=== PATIENT | male | born 1990 | race Caucasian/White ===

== ENCOUNTER 2021-05-19 08:24 | Emergency (ER) | payer OTHER, SELFPAY ==
--- NOTE | ~2021-05-19 | XR_ITS ---
XR ankle RT min 3V DATE: 05/19/2021 08:49 INDICATION: Rolled down hill 2 days ago. Lateral ankle pain TECHNIQUE: 4 views COMPARISON: None FINDINGS: There is a nondisplaced linear fracture of the fifth metatarsal very proximal shaft. No fracture or dislocation of the ankle or disruption of the ankle mortise is evident. IMPRESSION: Nondisplaced transverse fracture of the very proximal shaft of fifth metatarsal bone Reviewed, dictated and finalized at location B. IMPRESSION: Nondisplaced transverse fracture of the very proximal shaft of fift h metatarsal bone
[2021-05-19 08:30] VITALS: BP 176/96; PULSE 112; RESP 14; TEMP 37; O2SAT 99
--- NOTE | 2021-05-19 09:04 | ED.LOWEXIN ---
HPI - Extremity Injury (Lower) General Chief Complaint: Extremity Injury, Lower Stated Complaint: Ankle pain Time Seen by Provider: 05/19/21 08:53 Source: patient and RN notes reviewed Mode of arrival: ambulatory Limitations: no limitations History of Present Illness HPI Narrative: Patient presents today complaining of pain to the right ankle and foot. He was walking and fell into a hole rolling his ankle 2 days ago. Currently rates pain 3/10 at rest, but increases to 10/10 with weightbearing. He has been taking Tylenol without relief. Denies numbness or tingling in the leg or foot. MD complaint: foot injury Related Data Home Medications Medication Instructions Recorded Confirmed No Home Medications 05/19/21 05/19/21 Allergies Allergy/AdvReac Type Severity Reaction Status Date / Time No Known Allergies Allergy Verified 05/19/21 08:37 Review of Systems Review of Systems: CONSTITUTIONAL: Denies body aches, fever, chills, or sweats. EYES: Denies visual changes, redness, or discharge. ENT: Denies rhinorrhea, congestion, sore throat, or otalgia. CARDIOVASCULAR: Denies chest pain, palpitations, or edema. RESPIRATORY: Denies cough or dyspnea. GASTROINTESTINAL: Denies abdominal pain, nausea, vomiting, or diarrhea. GENITOURINARY: Denies dysuria or hematuria. SKIN: Denies rash, itching, or wounds. MUSCULOSKELETAL: Denies back pain, or myalgia. + Right ankle and foot injury NEUROLOGIC: Denies headache, numbness, tingling, or weakness. PSYCH: Denies depression or anxiety. PMFSH Comments At time of signature, I have reviewed and agree with nursing past medical, surgical, social and family history unless otherwise noted. Please see nursing chart for further information. There is no relevant family history pertinent to the presenting complaint Exam Narrative: GENERAL: Well-appearing, well-nourished, and in no acute distress. HEAD: Normocephalic, atraumatic. EYES: EOMI. No redness or drainage. Conjunctivae normal. ENT: Mucous membranes pink and moist. NECK: Normal AROM. CHEST: No respiratory distress. EXTREMITIES: Right ankle: Mild tenderness to the lateral malleolus. No tenderness medially. Tenderness just distal to lateral malleolus with mild localized edema and ecchymosis that extends to the proximal foot. Distal sensation intact. Capillary refill normal. Pedal pulse normal. Full range of motion of the ankle and all toes. SKIN: Warm, dry, no rash. Capillary refill normal. Normal skin turgor. NEURO: No focal deficits. Alert and oriented x3. Gait steady. PSYCH: Normal affect. No signs of depression or anxiety. Course Vital Signs Vital signs: Vital Signs Temperature 98.6 F 05/19/21 08:30 Pulse Rate 112 H 05/19/21 08:30 Respiratory Rate 14 05/19/21 08:30 Blood Pressure 176/96 H 05/19/21 08:30 Pulse Oximetry 99 05/19/21 08:30 Temperature 98.6 F 05/19/21 08:30 Pulse Rate 112 H 05/19/21 08:30 Respiratory Rate 14 05/19/21 08:30 Blood Pressure 176/96 H 05/19/21 08:30 Pulse Oximetry 99 05/19/21 08:30 Reviewed. Pt has been instructed to follow up with his PCP regarding his elevated blood pressure today. Procedures Orthopedic Splinting/Casting Injury #1: Splinting/Casting Date: 05/19/21 Splinting/Casting Time: 09:10 Side: right Lower Extremity Injury Location: foot Splint: customized in ED OCL: short leg Pre-Procedure Neuro Vascular Exam: normal Post-Procedure Neuro Vascular Exam: normal Other Orthopedic Equipment: crutches Additional Comments: Completed by tech MDM - Extremity Injury (Lower) Differential Diagnosis Differential diagnosis: Likely ankle sprain and strain, ankle fracture and other (Foot sprain, foot fracture, foot contusion) Imaging Data Radiologist's impression: ITS Impressions Ankle X-Ray 05/19/21 08:51 IMPRESSION: Nondisplaced transverse fracture of the very proximal shaft of fifth me
== END 2021-05-19 09:40 | disposition home or self-care (01) ==
PROVIDERS: Emergency Provider Nurse Practitioner
DX: S92.354A Nondisplaced fracture of fifth metatarsal bone, right foot, initial encounter for closed fracture (principal); W17.2XXA Fall into hole, initial encounter
CPT/HCPCS: 29515; 73610; 99214; G0463